=== PATIENT | male | born 1935 | race Caucasian/White ===

== ENCOUNTER 2017-04-22 10:52 | Day surgery (SDC) | payer MEDICARE, OTHER ==
[~2017-04-22] VITALS: Ht 167.6 cm; Wt 81.8 kg
[~2017-04-22 10:52] MED LIST: ASPI-535 PO; DOCU100C26 PO; FENO134C PO; METF500T4 PO; METO-53 PO; NIAC250T15 PO; OLME40TA14 PO; RANI150T5 PO; TERA1CAP36 PO
[2017-04-22 12:18] VITALS: Ht 167.6 cm; Wt 81.8 kg
[2017-04-22] MEDS ORDERED: VALS80TA2 PO (12:35)
[2017-04-22 12:58] VITALS: BP 175/80; PULSE 54; RESP 17
[2017-04-22] MEDS ORDERED: PROPOFOL 40 ML ONE (13:43)
[2017-04-22] MEDS ORDERED: LIDOCAINE 100 MG SYRINGE ONE (13:43)
[2017-04-22] MEDS ORDERED: FENTAnyl 50 MCG/ML VIAL ONE (13:44)
--- NOTE | 2017-04-22 14:01 | OPPN ---
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
[2017-04-22 14:28] VITALS: BP 174/76; RESP 14
--- NOTE | 2017-04-23 06:20 | GILP ---
DATE OF PROCEDURE: NAME OF PROCEDURES: Esophagogastroduodenoscopy and biopsy. SURGEON: Flaquita Miles MD. PREOPERATIVE DIAGNOSES 1. Abdominal pain. 2. Chronic heartburn. POSTOPERATIVE DIAGNOSES 1. Gastroesophageal reflux disease. 2. Gastritis with erosions. 3. Gastric mucosal biopsies were taken for Helicobacter pylori test. INDICATION FOR THE PROCEDURE: Mr. Peter Wetzel is an 81-year-old male patient who had upper abdomi nal pain and chronic heartburn, not responding to therapy. The patient was scheduled for endoscopic examination for further evaluation. The procedure and possible complications are well explained to the patient. The patient understood and consented to the procedure. DESCRIPTION OF PROCEDURE: Under the influence of anesthesia, the gastroscope was carefully introduc ed into the esophagus. Under direct vision, it was advanced to the stomach, into the pylorus, into the duodenal bulb and descending duodenum. FINDINGS ESOPHAGUS: The patient had gastroesophageal reflux disease. STOMACH: He had gastritis with erosions. Gastric mucosal biopsies were taken for H. pylori test. DUODENUM: Normal. He tolerated the procedure very well, and there was no complication from the procedure. At the end of the procedure, he was awake, with stable vital signs, and he was discharged home in the care of h is family. IMPRESSION: Please see postoperative diagnoses. PLAN 1. Omeprazole 40 mg p.o. q. a.m. 2. Await H. pylori test report. Dictated By: FLAQUITA ROBERSON/HEBER Conf#: [id number] DID#: [id number]
== END 2017-04-22 17:48 | disposition home or self-care (01) ==
LOC: GIL 10:52
PROVIDERS: ATTEND Internal Medicine Gastroenterology
DX: K29.70 Gastritis, unspecified, without bleeding (principal); K21.9 Gastro-esophageal reflux disease without esophagitis; I10 Essential (primary) hypertension; E11.9 Type 2 diabetes mellitus without complications; E78.5 Hyperlipidemia, unspecified
CPT/HCPCS: 43239; 87081; J2001; J3010